=== PATIENT | male | born 1970 | race African-American/Black ===

== ENCOUNTER 2020-01-21 07:15 | Inpatient (IN) | payer MEDICAID ==
[~2020-01-21] VITALS: Ht 142.2 cm; Wt 83.9 kg
[2020-01-21] MEDS ORDERED: NITROGLYCERIN 0.4MG TABLET SL SL ONE (07:45)
[2020-01-21] MEDS ORDERED: METOPROLOL TARTRATE 5MG/5ML VIAL IV ONE (08:00)
[2020-01-21 08:32] LABS: BASOPHILS % 0.6 % (0.0-2.0); EOSINOPHILS % 0.4 % (0.0-5.0); HEMATOCRIT. 44.1 % (42.0-52.0); HEMOGLOBIN. 14.7 g/dL (14.0-18.0); LYMPHOCYTES % 18.7 % (20.0-50.0); MEAN CORPUSCULAR HEMOGLOBIN 31.4 pg (28.0-32.0); MEAN CORPUSCULAR VOLUME 94.2 fL (80.0-94.0); MEAN PLATELET VOLUME 8.4 fl (7.4-10.4); MONOCYTES % 5.2 % (2.0-8.0); NEUTROPHILS % 75.1 % (40.0-76.0); PLATELET 102 x1000/uL (130-400); RED BLOOD CELL COUNT 4.68 mill/uL (4.7-6.1); RED CELL DISTRIBUTION WIDTH 14.6 % (11.6-14.6)
[2020-01-21 08:41] LABS: CHLORIDE 102 mEq/L (98-107)
[2020-01-21 09:37] LABS: *AMPHETAMINES SCREEN URINE NEGATIVE (NEGATIVE); *BARBITURATES SCREEN URINE NEGATIVE (NEGATIVE); *BENZODIAZEPINES SCREEN URINE NEGATIVE (NEGATIVE); *COCAINE SCREEN URINE NEGATIVE (NEGATIVE)
[2020-01-21 09:38] LABS: CANNABINOID URINE SCREEN NEGATIVE (NEGATIVE); METHADONE URINE SCREEN NEGATIVE (NEGATIVE); OPIATES URINE SCREEN NEGATIVE (NEGATIVE); PHENCYCLIDINE URINE SCREEN NEGATIVE (NEGATIVE)
[2020-01-21] MEDS ORDERED: DIPHENHYDRAMINE 50MG/ML VIAL IV PRN (09:45)
[2020-01-21] MEDS ORDERED: ONDANSETRON HCL 4MG/2ML INJ IV PRN (09:45)
[2020-01-21] MEDS ORDERED: IPRATROPIUM/ALBUTEROL 0.5-3(2.5)MG/3ML NEB HHN PRN (09:45)
[2020-01-21] MEDS ORDERED: CLONIDINE 0.1MG TABLET PO PRN (09:45)
[2020-01-21 09:54] LABS: PHOSPHORUS 4.2 mg/dL (2.5-4.9)
[2020-01-21] MEDS: ACETAMINOPHEN 325MG TABLET PO PRN (10:31)
[2020-01-21 12:00] VITALS: BP 147/92
[2020-01-21 12:30] VITALS: BP 147/92
[2020-01-21] MEDS: ENOXAPARIN 40MG/0.4ML SYR SUBCUT SCH (14:20)
[2020-01-21] MEDS: MORPHINE SULFATE 2 MG/ML CPJ (NOT FOR IM USE) IV PRN ×2 (14:20→18:34)
[2020-01-21 16:00] VITALS: BP 138/69
[2020-01-21 16:21] LABS: PHOSPHORUS 3.4 mg/dL (2.5-4.9)
[2020-01-21 16:23] LABS: LDL CHOLESTEROL 71 mg/dL (5-100)
[2020-01-21 16:24] LABS: CREATINE KINASE 227 IU/L (39-308); HDL CHOLESTEROL 130 mg/dL (40-59)
[2020-01-21 16:30] LABS: CREATINE KINASE MB FRACTION < 1.0 ng/mL (0.5-3.6)
[2020-01-21] MEDS ORDERED: FOLIC ACID 1 MG, THIAMINE HCL 100 MG, MVI, ADULT NO.1 10 ML in DEXTROSE 5% WATER 1,000 ML IV ONE ×4 (18:30)
[2020-01-21 20:00] VITALS: BP 157/81
[2020-01-21] MEDS: ATORVASTATIN CALCIUM 40MG TABLET PO SCH (21:44)
[2020-01-21] MEDS: CHLORDIAZEPOXIDE 25MG CAPSULE PO SCH (21:44)
[2020-01-22] VITALS: BP 152/85
[2020-01-22 01:15] LABS: CREATINE KINASE 188 IU/L (39-308)
[2020-01-22 01:16] LABS: CREATINE KINASE MB FRACTION < 1.0 ng/mL (0.5-3.6)
[2020-01-22 04:00] VITALS: BP 171/81
[2020-01-22] MEDS: CHLORDIAZEPOXIDE 25MG CAPSULE PO SCH ×3 (05:18→21:04)
[2020-01-22 06:48] LABS: BASOPHILS % 0.3 % (0.0-2.0); HEMATOCRIT. 41.6 % (42.0-52.0); LYMPHOCYTES % 22.2 % (20.0-50.0); MEAN CORPUSCULAR HEMOGLOBIN 31.3 pg (28.0-32.0); MONOCYTES % 7.2 % (2.0-8.0); NEUTROPHILS % 69.3 % (40.0-76.0); PLATELET 94 x1000/uL (130-400); RED BLOOD CELL COUNT 4.48 mill/uL (4.7-6.1); RED CELL DISTRIBUTION WIDTH 14.4 % (11.6-14.6)
[2020-01-22 07:21] LABS: CHLORIDE 97 mEq/L (98-107)
[2020-01-22 07:31] LABS: LDL CHOLESTEROL 59 mg/dL (5-100)
[2020-01-22 07:32] LABS: CREATINE KINASE 177 IU/L (39-308); HDL CHOLESTEROL 113 mg/dL (40-59)
[2020-01-22 07:35] LABS: CREATINE KINASE MB FRACTION < 1.0 ng/mL (0.5-3.6)
[2020-01-22 08:00] VITALS: BP 122/89
[2020-01-22] MEDS: ACETAMINOPHEN 325MG TABLET PO PRN (08:43)
[2020-01-22] MEDS: ENOXAPARIN 40MG/0.4ML SYR SUBCUT SCH (10:15)
[2020-01-22 12:00] VITALS: BP 127/72
[2020-01-22 16:00] VITALS: BP 131/82
[2020-01-22 20:00] VITALS: BP 125/67
[2020-01-22] MEDS: ATORVASTATIN CALCIUM 40MG TABLET PO SCH (21:05)
[2020-01-23] VITALS: BP 140/78
[2020-01-23 04:00] VITALS: BP 125/75
[2020-01-23] MEDS: CHLORDIAZEPOXIDE 25MG CAPSULE PO SCH ×2 (05:00→13:09)
[2020-01-23 07:40] LABS: BASOPHILS % 0.3 % (0.0-2.0); EOSINOPHILS % 2.4 % (0.0-5.0); HEMATOCRIT. 41.7 % (42.0-52.0); HEMOGLOBIN. 14.1 g/dL (14.0-18.0); LYMPHOCYTES % 24.3 % (20.0-50.0); MEAN CORPUSCULAR HEMOGLOBIN 31.5 pg (28.0-32.0); MEAN CORPUSCULAR VOLUME 93.1 fL (80.0-94.0); MEAN PLATELET VOLUME 9.2 fl (7.4-10.4); PLATELET 101 x1000/uL (130-400); RED BLOOD CELL COUNT 4.48 mill/uL (4.7-6.1); RED CELL DISTRIBUTION WIDTH 14.4 % (11.6-14.6)
[2020-01-23 08:00] VITALS: BP 96/75
[2020-01-23 08:55] LABS: CHLORIDE 100 mEq/L (98-107)
[2020-01-23 10:17] VITALS: BP 111/80
[2020-01-23] MEDS: ENOXAPARIN 40MG/0.4ML SYR SUBCUT SCH (10:49)
[2020-01-23 12:00] VITALS: BP 102/78
[2020-01-23] MEDS ORDERED: L25 PO (12:26)
[2020-01-23] MEDS ORDERED: LIP40 PO (12:26)
[2020-01-23] MEDS ORDERED: LISI-186 MT (12:43)
[2020-01-23] MEDS ORDERED: ONDANSETRON 4MG ODT PO SCH (13:00)
[2020-01-23 15:45] VITALS: BP 102/78
== END 2020-01-23 17:50 | disposition home or self-care (01) | DRG 203 ==
LOC: ER 07:55 → EDBEDREQ 08:22 → EDBEDREQTM 08:22 → 5WST 09:29 → EDBEDREQ 09:36 → EDBEDREQTM 09:36 → ENRESERV 11:34 → ER 12:30
PROVIDERS: ADMIT Internal Medicine; ATTEND Internal Medicine
DX: M94.0 Chondrocostal junction syndrome [Tietze] (principal); F10.239 Alcohol dependence with withdrawal, unspecified; F17.210 Nicotine dependence, cigarettes, uncomplicated; E78.5 Hyperlipidemia, unspecified; E87.1 Hypo-osmolality and hyponatremia; I42.6 Alcoholic cardiomyopathy; R00.0 Tachycardia, unspecified; Z82.49 Family history of ischemic heart disease and other diseases of the circulatory system; Z91.14 Patient's other noncompliance with medication regimen; Z79.899 Other long term (current) drug therapy; I50.20 Unspecified systolic (congestive) heart failure; R65.10 Systemic inflammatory response syndrome (SIRS) of non-infectious origin without acute organ dysfunction
CPT/HCPCS: 36415; 71045; 80048; 80053; 80061; 80305; 82550; 82553; 83036; 83735; 83880; 84100; 84443; 84484; 85025; 93005; 93306; 93970; 99285; J1650; J2270; J2405; J3411; J3490; J7070; Q0162

== ENCOUNTER 2021-06-02 10:53 | Emergency (ER) | payer MEDICAID ==
[~2021-06-02] VITALS: Ht 177.8 cm; Wt 100.0 kg
[~2021-06-02 10:53] MED LIST: L25 PO; LIP40 PO; LISI-186 MT
[2021-06-02] MEDS ORDERED: ONDANSETRON 4MG ODT PO ONE (11:30)
[2021-06-02 13:00] LABS: BASOPHILS % 0.5 % (0.0-2.0); EOSINOPHILS % 2.1 % (0.0-5.0); HEMATOCRIT. 44.2 % (42.0-52.0); HEMOGLOBIN. 14.4 g/dL (14.0-18.0); LYMPHOCYTES % 19.2 % (20.0-50.0); MEAN CORPUSCULAR HEMOGLOBIN 30.1 pg (28.0-32.0); MEAN CORPUSCULAR VOLUME 92.2 fL (80.0-94.0); MEAN PLATELET VOLUME 8.1 fl (7.4-10.4); MONOCYTES % 6.7 % (2.0-8.0); NEUTROPHILS % 71.5 % (40.0-76.0); PLATELET 137 x1000/uL (130-400); RED BLOOD CELL COUNT 4.79 mill/uL (4.7-6.1); RED CELL DISTRIBUTION WIDTH 13.9 % (11.6-14.6)
[2021-06-02 13:09] LABS: CHLORIDE 104 mEq/L (98-107)
[2021-06-02] MEDS ORDERED: DOXY100C5 MT (17:41)
[2021-06-02] MEDS ORDERED: P50 MT (17:42)
[2021-06-02] MEDS ORDERED: PREDNISONE 20MG TABLET PO ONE (17:45)
[2021-06-02] MEDS ORDERED: DOXYCYCLINE HYCLATE 100MG CAPSULE PO ONE (17:45)
[2021-06-02 18:53] VITALS: BP 126/88
== END 2021-06-02 18:54 | disposition home or self-care (01) ==
LOC: ER 11:03
DX: J44.1 Chronic obstructive pulmonary disease with (acute) exacerbation (principal); B34.9 Viral infection, unspecified; R11.2 Nausea with vomiting, unspecified; R06.02 Shortness of breath; I50.9 Heart failure, unspecified; J44.9 Chronic obstructive pulmonary disease, unspecified; Z87.891 Personal history of nicotine dependence; Z79.899 Other long term (current) drug therapy; Z20.822 Contact with and (suspected) exposure to COVID-19
CPT/HCPCS: 36415; 71045; 80053; 83880; 84484; 85025; 93005; 99285; C9803; J7512; U0003; U0005; Z7610

== ENCOUNTER 2021-12-21 05:52 | Emergency (ER) | payer MEDICAID, OTHER ==
[~2021-12-21] VITALS: Ht 167.6 cm; Wt 79.0 kg
[~2021-12-21 05:52] MED LIST changes: +DOXY100C5 MT; +P50 MT
[2021-12-21] MEDS ORDERED: ACETAMINOPHEN 325MG TABLET PO ONE (06:45)
[2021-12-21] MEDS ORDERED: ACETAMINOPHEN 325MG TABLET PO SCH (08:45)
[2021-12-21 08:59] LABS: CHLORIDE 96 mEq/L (98-107)
[2021-12-21 10:00] VITALS: BP 150/93
[2021-12-21] MEDS ORDERED: ASPIRIN 325MG EC TABLET PO ONE (10:00)
[2021-12-21] MEDS ORDERED: KETOROLAC 30MG/ML VIAL IV ONE (10:00)
[2021-12-21 10:22] LABS: BASOPHILS % 0.4 % (0.0-2.0); EOSINOPHILS % 7.8 % (0.0-5.0); HEMATOCRIT. 47.1 % (42.0-52.0); LYMPHOCYTES % 29.3 % (20.0-50.0); MEAN CORPUSCULAR VOLUME 91.1 fL (80.0-94.0); MEAN PLATELET VOLUME 7.9 fl (7.4-10.4); MONOCYTES % 4.1 % (2.0-8.0); NEUTROPHILS % 58.4 % (40.0-76.0); PLATELET 124 x1000/uL (130-400); RED BLOOD CELL COUNT 5.17 mill/uL (4.7-6.1); RED CELL DISTRIBUTION WIDTH 14.2 % (11.6-14.6)
== END 2021-12-21 11:46 | disposition left against medical advice (07) ==
LOC: ER 06:16 → CMPBEDREQ 21:05
DX: R07.89 Other chest pain (principal); M79.18 Myalgia, other site; M79.645 Pain in left finger(s); Z20.822 Contact with and (suspected) exposure to COVID-19; R00.0 Tachycardia, unspecified; I49.1 Atrial premature depolarization; I11.0 Hypertensive heart disease with heart failure; I50.9 Heart failure, unspecified
CPT/HCPCS: 36415; 71045; 73120; 80053; 83880; 85025; 87426; 93005; 96374; 99285; C9803; J1885

== ENCOUNTER 2021-12-27 10:29 | Inpatient (IN) | payer OTHER ==
[~2021-12-27] VITALS: Ht 167.6 cm; Wt 97.6 kg
[2021-12-27 10:47] LABS: BASOPHILS % 0.6 % (0.0-2.0); EOSINOPHILS % 2.1 % (0.0-5.0); HEMATOCRIT. 34.9 % (42.0-52.0); HEMOGLOBIN. 11.6 g/dL (14.0-18.0); LYMPHOCYTES % 14.7 % (20.0-50.0); MEAN CORPUSCULAR HEMOGLOBIN 30.7 pg (28.0-32.0); MEAN CORPUSCULAR VOLUME 92.2 fL (80.0-94.0); MEAN PLATELET VOLUME 8.9 fl (7.4-10.4); MONOCYTES % 5.7 % (2.0-8.0); NEUTROPHILS % 76.9 % (40.0-76.0); PLATELET 119 x1000/uL (130-400); RED BLOOD CELL COUNT 3.78 mill/uL (4.7-6.1); RED CELL DISTRIBUTION WIDTH 14.2 % (11.6-14.6)
[2021-12-27 10:56] LABS: CHLORIDE 104 mEq/L (98-107)
[2021-12-27] MEDS ORDERED: FUROSEMIDE 40MG/4ML VIAL IVP ONE (11:30)
[2021-12-27] MEDS ORDERED: ONDANSETRON HCL 4MG/2ML INJ IV PRN (13:00)
[2021-12-27] MEDS ORDERED: IPRATROPIUM/ALBUTEROL 0.5-3(2.5)MG/3ML NEB HHN PRN (13:00)
[2021-12-27] MEDS ORDERED: ACETAMINOPHEN 325MG TABLET PO PRN (13:00)
[2021-12-27] MEDS ORDERED: DIPHENHYDRAMINE 50MG/ML VIAL IV PRN (13:00)
[2021-12-27] MEDS ORDERED: CLONIDINE 0.1MG TABLET PO PRN (13:00)
[2021-12-27] MEDS: SPIRONOLACTONE 25MG TABLET PO SCH (13:55)
[2021-12-27] MEDS ORDERED: AZITHROMYCIN 500 MG in DEXT 5% WATER 250 ML IV SCH (14:00)
[2021-12-27] MEDS ORDERED: CEFTRIAXONE 1,000 MG in DEXTROSE 5% WATER 50 ML IV SCH (15:00)
[2021-12-27 15:45] VITALS: BP 156/104
[2021-12-27 16:00] VITALS: BP 136/92
[2021-12-27 16:08] VITALS: BP 136/92
[2021-12-27 16:52] LABS: *AMPHETAMINES SCREEN URINE NEGATIVE (NEGATIVE); *BARBITURATES SCREEN URINE NEGATIVE (NEGATIVE); *BENZODIAZEPINES SCREEN URINE NEGATIVE (NEGATIVE); *COCAINE SCREEN URINE NEGATIVE (NEGATIVE); CANNABINOID URINE SCREEN NEGATIVE (NEGATIVE); METHADONE URINE SCREEN NEGATIVE (NEGATIVE); OPIATES URINE SCREEN NEGATIVE (NEGATIVE); PHENCYCLIDINE URINE SCREEN NEGATIVE (NEGATIVE)
[2021-12-27] MEDS ORDERED: FUROSEMIDE 40MG/4ML VIAL IV SCH (17:00)
[2021-12-27] MEDS ORDERED: PNEUMOCOCCAL 23-VAL P-SAC VAC 0.5 ML IM ONE (17:00)
[2021-12-27] MEDS ORDERED: ASPI-986 MT (17:21)
[2021-12-27] MEDS ORDERED: METF500T60 MT (17:21)
[2021-12-27] MEDS ORDERED: ISOS10TA53 MT (17:21)
[2021-12-27] MEDS ORDERED: FURO-151 MT (17:21)
[2021-12-27] MEDS ORDERED: SACU1TAB MT (17:21)
[2021-12-27] MEDS ORDERED: IBUPROFEN 400MG TABLET PO PRN (17:45)
[2021-12-27 18:00] VITALS: BP 137/89
[2021-12-27] MEDS ORDERED: POTASSIUM CHLORIDE 20MEQ TABLET SR PO NR (18:00)
[2021-12-27] MEDS: FUROSEMIDE 40MG/4ML VIAL IV SCH (18:10)
[2021-12-27 20:00] VITALS: BP 156/73
[2021-12-27 22:00] VITALS: BP 141/95
[2021-12-28] VITALS (12 sets, daily range): BP systolic 107–152; BP diastolic 40–113
[2021-12-28] MEDS: FUROSEMIDE 40MG/4ML VIAL IV SCH ×2 (05:38→17:02)
[2021-12-28 06:27] LABS: CHLORIDE 99 mEq/L (98-107)
[2021-12-28 06:29] LABS: BASOPHILS % 0.4 % (0.0-2.0); EOSINOPHILS % 2.4 % (0.0-5.0); HEMATOCRIT. 34.5 % (42.0-52.0); HEMOGLOBIN. 11.5 g/dL (14.0-18.0); LYMPHOCYTES % 24.8 % (20.0-50.0); MEAN CORPUSCULAR HEMOGLOBIN 30.8 pg (28.0-32.0); MEAN CORPUSCULAR VOLUME 92.6 fL (80.0-94.0); MEAN PLATELET VOLUME 8.8 fl (7.4-10.4); MONOCYTES % 6.8 % (2.0-8.0); NEUTROPHILS % 65.6 % (40.0-76.0); PLATELET 129 x1000/uL (130-400); RED BLOOD CELL COUNT 3.73 mill/uL (4.7-6.1); RED CELL DISTRIBUTION WIDTH 14.4 % (11.6-14.6)
[2021-12-28] MEDS: SPIRONOLACTONE 25MG TABLET PO SCH (08:00)
[2021-12-28] MEDS ORDERED: POTASSIUM CHLORIDE 20MEQ TABLET SR PO SCH (12:00)
[2021-12-28 12:07] LABS: PHOSPHORUS 2.6 mg/dL (2.5-4.9)
[2021-12-28] MEDS ORDERED: CEFTRIAXONE 1,000 MG in DEXTROSE 5% WATER 50 ML IV SCH (13:00)
[2021-12-28] MEDS ORDERED: AZITHROMYCIN 500 MG in DEXT 5% WATER 250 ML IV SCH (14:00)
[2021-12-29] VITALS (12 sets, daily range): BP systolic 104–140; BP diastolic 57–93
[2021-12-29] MEDS: FUROSEMIDE 40MG/4ML VIAL IV SCH (05:28)
[2021-12-29 06:22] LABS: CHLORIDE 103 mEq/L (98-107)
[2021-12-29 06:24] LABS: BASOPHILS % 0.5 % (0.0-2.0); EOSINOPHILS % 3.3 % (0.0-5.0); HEMATOCRIT. 36.4 % (42.0-52.0); HEMOGLOBIN. 12.1 g/dL (14.0-18.0); MEAN CORPUSCULAR HEMOGLOBIN 30.9 pg (28.0-32.0); MEAN CORPUSCULAR VOLUME 92.7 fL (80.0-94.0); NEUTROPHILS % 53.2 % (40.0-76.0); PLATELET 188 x1000/uL (130-400); RED BLOOD CELL COUNT 3.93 mill/uL (4.7-6.1); RED CELL DISTRIBUTION WIDTH 14.2 % (11.6-14.6)
[2021-12-29] MEDS: SPIRONOLACTONE 25MG TABLET PO SCH (08:38)
[2021-12-30] VITALS (8 sets, daily range): BP systolic 107–149; BP diastolic 65–96
[2021-12-30 06:50] LABS: CHLORIDE 99 mEq/L (98-107)
[2021-12-30] MEDS: SPIRONOLACTONE 25MG TABLET PO SCH (08:11)
[2021-12-30] MEDS ORDERED: ATENOLOL 50 MG TABLET PO SCH (09:00)
[2021-12-30] MEDS ORDERED: FUROSEMIDE 40MG TABLET PO SCH (09:00)
[2021-12-30] MEDS ORDERED: SPIR25TA PO (10:30)
[2021-12-30] MEDS ORDERED: ASPI-1406 MT (10:30)
[2021-12-30] MEDS ORDERED: FURO-151 MT (10:30)
[2021-12-30] MEDS ORDERED: ATEN50TA PO (10:30)
== END 2021-12-30 13:25 | disposition home or self-care (01) | DRG 194 ==
LOC: ER 10:40 → 5EST 11:57 → EDBEDREQ 12:00 → EDBEDREQTM 12:00 → EDBEDREQSVC 12:00 → ENRESERV 14:25
PROVIDERS: ADMIT Internal Medicine; ATTEND Internal Medicine
DX: I11.0 Hypertensive heart disease with heart failure (principal); J96.01 Acute respiratory failure with hypoxia; E44.1 Mild protein-calorie malnutrition; E87.1 Hypo-osmolality and hyponatremia; K92.0 Hematemesis; D69.6 Thrombocytopenia, unspecified; I50.23 Acute on chronic systolic (congestive) heart failure; J45.909 Unspecified asthma, uncomplicated; F17.210 Nicotine dependence, cigarettes, uncomplicated; D64.9 Anemia, unspecified; E87.6 Hypokalemia; F10.10 Alcohol abuse, uncomplicated; Z60.2 Problems related to living alone; K76.1 Chronic passive congestion of liver; I44.7 Left bundle-branch block, unspecified; M19.90 Unspecified osteoarthritis, unspecified site; R74.01 Elevation of levels of liver transaminase levels; Z68.34 Body mass index [BMI] 34.0-34.9, adult; Z79.899 Other long term (current) drug therapy; Z91.19 Patient's noncompliance with other medical treatment and regimen; Z71.6 Tobacco abuse counseling
CPT/HCPCS: 36415; 71045; 80048; 80053; 80305; 80320; 83735; 83880; 84100; 84145; 84484; 85025; 85379; 90732; 93005; 93306; 93970; 99285; J0456; J0696; J1940; J7060; G0480

== ENCOUNTER 2022-02-18 18:10 | Emergency (ER) | payer MEDICAID, OTHER ==
[~2022-02-18] VITALS: Ht 162.6 cm; Wt 91.0 kg
[~2022-02-18 18:10] MED LIST changes: +ASPI-1406 MT; +ATEN50TA PO; -DOXY100C5 MT; +FURO-151 MT; -L25 PO; -LIP40 PO; -LISI-186 MT; +METF500T60 MT; -P50 MT; +SACU1TAB MT; +SPIR25TA PO
[2022-02-18 18:27] VITALS: BP 151/104
[2022-02-19] MEDS ORDERED: AMOX1TAB16 MT (02:48)
[2022-02-19] MEDS ORDERED: TETANUS, DIPHTHERIA, PERTUSSIS VAC/PF 0.5ML (>10YR OLD) IM ONE (03:00)
== END 2022-02-19 03:24 | disposition home or self-care (01) ==
LOC: ER 18:10
DX: S51.852A Open bite of left forearm, initial encounter (principal); I11.0 Hypertensive heart disease with heart failure; I50.9 Heart failure, unspecified; F10.10 Alcohol abuse, uncomplicated; W54.0XXA Bitten by dog, initial encounter; Y90.9 Presence of alcohol in blood, level not specified; Y93.89 Activity, other specified; Y92.017 Garden or yard in single-family (private) house as the place of occurrence of the external cause
CPT/HCPCS: 99281; 99283

== ENCOUNTER 2022-05-30 22:12 | Inpatient (IN) | payer MEDICAID, OTHER ==
[~2022-05-30] VITALS: Ht 182.9 cm; Wt 92.1 kg
[~2022-05-30 22:12] MED LIST changes: +AMOX1TAB16 MT
[2022-05-30] MEDS ORDERED: SODIUM CHLORIDE 0.9% 1,000 ML IV ONE (22:30)
[2022-05-30 23:34] LABS: BASOPHILS % 0.4 % (0.0-2.0); EOSINOPHILS % 0.4 % (0.0-5.0); HEMATOCRIT. 47.7 % (42.0-52.0); HEMOGLOBIN. 16.2 g/dL (14.0-18.0); LYMPHOCYTES % 18.2 % (20.0-50.0); MEAN CORPUSCULAR HEMOGLOBIN 30.7 pg (28.0-32.0); MEAN CORPUSCULAR VOLUME 90.6 fL (80.0-94.0); MEAN PLATELET VOLUME 7.3 fl (7.4-10.4); MONOCYTES % 5.5 % (2.0-8.0); NEUTROPHILS % 75.5 % (40.0-76.0); PLATELET 234 x1000/uL (130-400); RED BLOOD CELL COUNT 5.27 mill/uL (4.7-6.1); RED CELL DISTRIBUTION WIDTH 13.6 % (11.6-14.6)
[2022-05-31 00:38] LABS: CHLORIDE 101 mEq/L (98-107)
[2022-05-31 00:59] LABS: CREATINE KINASE 228 IU/L (39-308)
[2022-05-31 01:54] LABS: ETHANOL BLOOD 396 mg/dL
[2022-05-31] MEDS ORDERED: SODIUM CHLORIDE 0.9% 1,000 ML IV ONE (02:00)
[2022-05-31 04:30] VITALS: BP 135/85
[2022-05-31] MEDS ORDERED: LORAZEPAM 2MG/ML CPJ IV PRN (06:30)
[2022-05-31] MEDS ORDERED: SODIUM CHLORIDE 0.45% 1,000 ML IV SCH (07:00)
[2022-05-31 08:00] VITALS: BP 136/94
[2022-05-31] MEDS: FOLIC ACID 1 MG, THIAMINE HCL 100 MG, MVI, ADULT NO.1 10 ML in DEXTROSE 5% WATER 1,000 ML IV SCH ×4 (08:26)
[2022-05-31] MEDS: PANTOPRAZOLE SODIUM 40 MG/VIAL IV SCH (08:26)
[2022-05-31 12:00] VITALS: BP 150/97
[2022-05-31] MEDS: CHLORDIAZEPOXIDE 25MG CAPSULE PO SCH ×2 (14:30→21:18)
[2022-05-31 16:00] VITALS: BP 125/77
[2022-05-31] MEDS ORDERED: MAGNESIUM/ALUMINUM HYDROXIDE/SIMETHICONE 30ML UDC PO PRN (17:15)
[2022-05-31] MEDS ORDERED: HYDROCODONE/ACETAMINOPHEN 10/325MG TABLET PO PRN (17:15)
[2022-05-31] MEDS ORDERED: NALOXONE HCL 0.4MG/ML VIAL IV PRN (17:30)
[2022-05-31 20:00] VITALS: BP 150/89
[2022-06-01] VITALS: BP 147/80
[2022-06-01 04:00] VITALS: BP 154/97
[2022-06-01] MEDS: CHLORDIAZEPOXIDE 25MG CAPSULE PO SCH ×2 (05:44→14:06)
[2022-06-01 08:00] VITALS: BP 159/111
[2022-06-01] MEDS: FOLIC ACID 1 MG, THIAMINE HCL 100 MG, MVI, ADULT NO.1 10 ML in DEXTROSE 5% WATER 1,000 ML IV SCH ×4 (08:55)
[2022-06-01] MEDS: PANTOPRAZOLE SODIUM 40 MG/VIAL IV SCH (08:55)
[2022-06-01 12:00] VITALS: BP 153/94
[2022-06-01 15:20] VITALS: BP 159/111
== END 2022-06-01 15:40 | disposition home or self-care (01) | DRG 52 ==
LOC: ER 22:19 → 6EST 05-31 02:18 → EDBEDREQ 05-31 02:24 → EDBEDREQTM 05-31 02:24 → ENRESERV 05-31 04:02
PROVIDERS: ADMIT Internal Medicine; ATTEND Internal Medicine
DX: G92.9 Unspecified toxic encephalopathy (principal); E87.20 Acidosis, unspecified; I50.9 Heart failure, unspecified; I11.0 Hypertensive heart disease with heart failure; F10.129 Alcohol abuse with intoxication, unspecified; R74.01 Elevation of levels of liver transaminase levels; Z71.41 Alcohol abuse counseling and surveillance of alcoholic; Y90.8 Blood alcohol level of 240 mg/100 ml or more; Z79.899 Other long term (current) drug therapy
CPT/HCPCS: 36415; 71045; 80053; 80307; 80320; 80329; 82550; 82962; 83605; 83880; 84443; 84484; 85025; 93005; 99291; C9113; J2060; J3411; J3490; J7030; J7070; G0480

== ENCOUNTER 2023-08-13 14:49 | Emergency (ER) | payer OTHER, MEDICAID ==
[~2023-08-13] VITALS: Ht 177.8 cm; Wt 70.0 kg
[~2023-08-13 14:49] MED LIST changes: -AMOX1TAB16 MT; +ATOR20TA65 PO; +CARV25TA47 PO; +FURO40TA5 PO; +HYDR25TA78 PO; +ISMO20 PO
[2023-08-13 14:57] VITALS: O2SAT 98
[2023-08-13 17:53] LABS: BASOPHILS % 0.5 % (0.0-2.0); EOSINOPHILS % 3.9 % (0.0-5.0); HEMATOCRIT. 45.5 % (42.0-52.0); HEMOGLOBIN. 14.6 g/dL (14.0-18.0); LYMPHOCYTES % 31.9 % (20.0-50.0); MEAN CORPUSCULAR HEMOGLOBIN 29.8 pg (28.0-32.0); MEAN CORPUSCULAR HGB CONC 32.2 g/dL (31.0-37.0); MEAN CORPUSCULAR VOLUME 92.5 fL (80.0-94.0); MEAN PLATELET VOLUME 7.3 fl (7.4-10.4); NEUTROPHILS % 54.7 % (40.0-76.0); PLATELET 213 x1000/uL (130-400); RED BLOOD CELL COUNT 4.92 mill/uL (4.7-6.1); RED CELL DISTRIBUTION WIDTH 16.5 % (11.6-14.6); WHITE BLOOD COUNT 6.3 x1000/uL (4.5-11.0)
[2023-08-13 18:18] LABS: ALANINE AMINOTRANSFERASE 26 IU/L (10-49); ALBUMIN 4.1 g/dL (3.2-4.8); ASPARTATE AMINOTRANSFERASE 38 IU/L (<34); BILIRUBIN TOTAL 0.4 mg/dL (0.1-1.0); CARBON DIOXIDE 22 mEq/L (21-32); CHLORIDE 103 mEq/L (98-107); CREATININE 0.8 mg/dL (0.6-1.3); ETHANOL BLOOD 350 mg/dL (<10); GLUCOSE 95 mg/dL (70-105); POTASSIUM 4.5 mEq/L (3.5-5.1); PROTEIN TOTAL 6.7 g/dL (6.0-8.3); SODIUM 141 mEq/L (136-145)
[2023-08-13 18:20] LABS: UREA NITROGEN BLOOD < 5 mg/dL (9-23)
[2023-08-13 20:38] VITALS: BP 120/76; PULSE 109; RESP 26; TEMP 98.7
== END 2023-08-13 20:48 | disposition home or self-care (01) ==
LOC: ER 14:49
DX: F10.129 Alcohol abuse with intoxication, unspecified (principal); I11.0 Hypertensive heart disease with heart failure; I50.9 Heart failure, unspecified; Y90.8 Blood alcohol level of 240 mg/100 ml or more
CPT/HCPCS: 80053; 80320; 83690; 85025; 36415; 99283; Z7610 ×2; G0480

== ENCOUNTER 2024-02-23 14:31 | Emergency (ER) | payer MEDICAID, OTHER ==
[~2024-02-23] VITALS: Ht 167.6 cm; Wt 86.0 kg
[~2024-02-23 14:31] MED LIST changes: +CARV3.1242 MT
[2024-02-23 14:46] VITALS: O2SAT 98
[2024-02-23] MEDS: KETOROLAC 30MG/ML VIAL IM ONE (19:14)
[2024-02-23] MEDS ORDERED: ACET-2708 MT (20:04)
[2024-02-23 20:28] VITALS: BP 134/94; PULSE 105; RESP 18; O2SAT 100
== END 2024-02-23 20:28 | disposition home or self-care (01) ==
LOC: ER 14:31
DX: M25.511 Pain in right shoulder (principal); M25.551 Pain in right hip; F20.9 Schizophrenia, unspecified; F31.9 Bipolar disorder, unspecified; M54.50 Low back pain, unspecified; I50.9 Heart failure, unspecified; Z79.899 Other long term (current) drug therapy
CPT/HCPCS: 99284; 73502; 72100; 73030; 73562; 96372; J1885; A4565

== ENCOUNTER 2024-09-25 16:07 | Emergency (ER) | payer MEDICAID ==
[~2024-09-25] VITALS: Ht 177.8 cm; Wt 98.0 kg
[~2024-09-25 16:07] MED LIST changes: +ACET-2708 MT; -ISMO20 PO; +ISOS-51 PO
[2024-09-25 16:17] VITALS: O2SAT 97
[2024-09-25] MEDS: IBUPROFEN 600MG TABLET PO ONE (20:38)
[2024-09-25] MEDS ORDERED: IBUP-2028 MT (21:38)
[2024-09-25 22:02] VITALS: BP 142/97; PULSE 115; RESP 16; TEMP 36.7; O2SAT 97
== END 2024-09-25 22:03 | disposition home or self-care (01) ==
LOC: ER 16:07
DX: S09.8XXA Other specified injuries of head, initial encounter (principal); M54.2 Cervicalgia; M54.9 Dorsalgia, unspecified; I11.0 Hypertensive heart disease with heart failure; I50.9 Heart failure, unspecified; J44.9 Chronic obstructive pulmonary disease, unspecified; M17.0 Bilateral primary osteoarthritis of knee; Z79.82 Long term (current) use of aspirin; Z79.84 Long term (current) use of oral hypoglycemic drugs; Z79.899 Other long term (current) drug therapy; V43.62XA Car passenger injured in collision with other type car in traffic accident, initial encounter; Y93.89 Activity, other specified; Y92.410 Unspecified street and highway as the place of occurrence of the external cause; Y99.8 Other external cause status
CPT/HCPCS: 72128; 72131; 73560; 99284

== ENCOUNTER 2025-03-23 14:51 | Emergency (ER) | payer OTHER, MEDICAID ==
[~2025-03-23] VITALS: Ht 160 cm; Wt 87.0 kg
[~2025-03-23 14:51] MED LIST changes: +IBUP-2028 MT
[2025-03-23 14:53] VITALS: O2SAT 98
[2025-03-23 15:11] VITALS: BP 126/80; PULSE 93; RESP 18; TEMP 36.7; O2SAT 97
[2025-03-23] MEDS ORDERED: LIDOCAINE 5% PATCH TOP SCH (16:00)
[2025-03-23] MEDS ORDERED: KETOROLAC 30MG/ML VIAL IM ONE (16:00)
[2025-03-23] MEDS ORDERED: LIDO-53 TP (16:39)
== END 2025-03-23 17:16 | disposition home or self-care (01) ==
LOC: ER 14:51
DX: M54.50 Low back pain, unspecified (principal); F41.9 Anxiety disorder, unspecified; I11.0 Hypertensive heart disease with heart failure; I50.9 Heart failure, unspecified; J44.9 Chronic obstructive pulmonary disease, unspecified; I95.9 Hypotension, unspecified; Z79.899 Other long term (current) drug therapy; Z79.84 Long term (current) use of oral hypoglycemic drugs; Z79.82 Long term (current) use of aspirin; V89.2XXA Person injured in unspecified motor-vehicle accident, traffic, initial encounter; Y93.89 Activity, other specified; Y92.89 Other specified places as the place of occurrence of the external cause; Y99.8 Other external cause status
CPT/HCPCS: 99283; J1885